=== PATIENT | female | born 1950 | race Caucasian/White ===

== ENCOUNTER 2019-01-22 12:16 | Outpatient (CLI) | payer MEDICARE, BC ==
--- NOTE | 2019-01-22 17:31 | NM ---
NUCLEAR MEDICINE HEPATOBILIARY SCAN: 01/22/19 HISTORY: 68-year-old female with epigastric pain and distended gallbladder. TECHNIQUE: [id number] dose: 5.3 mCi Ensure (fatty meal) dose: 8 oz. [id number] injected IV. Dynamic anterior scintigraphy of abdomen for 1 hour. Fatty meal adminis tered. Additional dynamic anterior scintigraphy of abdomen. Counts obtained over gallbladder. Time-a ctivity curve generated. FINDINGS: There is normal uptake and washout of activity at the liver. Bowel activity is visualized at an appro priate time. There is delayed filling of the gallbladder which appears after the 60 minute image. Gal lbladder ejection fraction evaluation is limited because of activity in bowel overlying the gallbladd er or adjacent to the gallbladder. Gallbladder ejection fraction of 20% is obtained. IMPRESSION: Abnormally delayed filling of the gallbladder, and abnormally low gallbladder ejection fraction of 20 %. DEREK Rizvi POS: [facility]
== END 2019-01-22 12:17 | disposition home or self-care (01) ==
LOC: NM 12:16
PROVIDERS: ATTEND Family Medicine
DX: R10.13 Epigastric pain (principal); R93.3 Abnormal findings on diagnostic imaging of other parts of digestive tract
CPT/HCPCS: 78227; A9537

== ENCOUNTER 2019-03-06 08:55 | Outpatient (CLI) | payer MEDICARE, BC ==
[2019-03-06 11:31] LABS: #Basophils 0.1 thou/uL (0.0-0.2); #Eosinphils 0.3 thou/uL (0.0-0.7); #Lymphocytes 2.5 thou/uL (1.20-3.40); #Monocytes 0.5 thou/uL (0.11-0.59); #Neutrophils 1.9 thou/uL (1.40-6.50); %Eosinophils 4.9 % (0.0-10.0); %Lymphocytes 47.3 % (21.0-51.0); %Monocytes 9.6 % (0.0-10.0); %Neutrophils 37.2 % (42.0-75.0); Hemoglobin 14.4 g/dL (12.0-16.0); Mean Corpuscular HGB CONC 31.4 g/dL (32.0-36.0); Mean Corpuscular Hemoglobin 28.8 pg (27.0-31.0); Mean Corpuscular Volume 91.6 fL (78.0-98.0); Mean Platelet Volume 8.1 fL (7.4-10.4); Platelet Count 263 thou/uL (130-400); RBC Distribution Width 12.1 % (11.5-14.5); Red Blood Cell (RBC) Count 5.01 mill/uL (4.20-5.40); White Blood Cell (WBC) Count 5.2 thou/uL (4.8-10.8)
[2019-03-06 12:00] LABS: ALT (SGPT) 15 U/L (8-55); AST (SGOT) 18 U/L (5-34); Albumin 4.2 g/dL (3.4-4.8); Alkaline Phosphatase 62 U/L (40-150); Anion Gap 12 mmol/L (10-20); BUN (Urea Nitrogen) 14 mg/dL (9.8-20.1); Bilirubin, Direct 0.2 mg/dL (0.1-0.3); Bilirubin, Total 0.5 mg/dL (0.2-1.2); Calc. Creatinine Clearance 0 mL/min (70-130); Calcium 9.6 mg/dL (7.8-10.44); Carbon Dioxide 25 mmol/L (23-31); Chloride 106 mmol/L (98-107); Estimated GFR-MDRD 61; Globulin 3.2 g/dL (2.4-3.5); Glucose 90 mg/dL (80-115); Potassium 4.5 mmol/L (3.5-5.1); Protein, Total 7.4 g/dL (6.0-8.3); Sodium 138 mmol/L (136-145)
--- NOTE | 2019-03-06 17:19 | EKG ---
Test Reason : Blood Pressure : / mmHG Vent. Rate : 056 BPM Atrial Rate : 056 BPM P-R Int : 236 ms QRS Dur : 102 ms QT Int : 436 ms P-R-T Axes : 074 075 036 degrees QTc Int : 420 ms Sinus bradycardia with marked sinus arrhythmia with 1st degree A-V block Otherwise normal ECG When compared with ECG of 15-SEP-2011 11:47, WI interval has increased Confirmed by DR. Shelley SCHWARTZ ([id number]) on 03/06/2019 5:19:20 PM Referred By: LYNDA Confirmed By:DR. Shelley SCHWARTZ
== END 2019-03-06 08:56 | disposition home or self-care (01) ==
LOC: LABBT 08:55
PROVIDERS: ATTEND Surgery
DX: Z01.818 Encounter for other preprocedural examination (principal); K81.1 Chronic cholecystitis
CPT/HCPCS: 80053; 80076; 85025; 93005; 93010

== ENCOUNTER 2019-03-13 07:58 | Inpatient (IN) | payer MEDICARE, BC ==
[2019-03-13] MEDS ORDERED: Sodium Chloride 0.9% 100 ML ONE (08:34)
[2019-03-13] MEDS ORDERED: cefOXitin 2 GM VIAL ONE (08:34)
[2019-03-13] MEDS ORDERED: Bupivacaine/Epinephrine 0.25% 30 ML VIAL ONE (09:02)
[2019-03-13] MEDS ORDERED: Bupivacaine 0.25% HCL 30 ML VIAL ONE (09:02)
[2019-03-13] MEDS ORDERED: Iothalamate Meglumine 60% 50 ML VIAL FS ONE (09:07)
[2019-03-13] MEDS ORDERED: Fentanyl 250 MCG/5 ML VIAL ONE (09:08)
[2019-03-13] MEDS ORDERED: Promethazine HCl 25 MG/ML VIAL IM PRN ×2 (10:41→11:00)
[2019-03-13] MEDS ORDERED: Morphine 4 MG/ML VIAL SLOW IVP PRN (10:41)
[2019-03-13] MEDS ORDERED: Dextrose 5% in Water 1,000 ML IV PRN (10:41)
[2019-03-13] MEDS ORDERED: Mag-Al 1200 mg/1200 mg/30 ML UDCUP PO PRN (10:41)
[2019-03-13] MEDS ORDERED: Dextrose 50% Abboject 50 ML SYRINGE SLOW IVP PRN (10:41)
[2019-03-13] MEDS ORDERED: Ondansetron PF 4 MG/2 ML Vial IVP PRN (10:41)
[2019-03-13] MEDS ORDERED: hydrALAZINE 20 MG/ML VIAL SLOW IVP PRN (10:41)
[2019-03-13] MEDS ORDERED: Calcium Carbonate 500 MG ChewTAB PO PRN (10:41)
[2019-03-13] MEDS ORDERED: Promethazine HCl 25 MG/ML VIAL SLOW IVP PRN (11:00)
[2019-03-13] MEDS ORDERED: Ondansetron HCl/PF 4 MG/2 ML Vial IVP PRN (11:00)
[2019-03-13] MEDS: D5 1/2 NS w/20 mEq KCL 1,000 ML IV SCH ×2 (13:06→21:26)
--- NOTE | 2019-03-13 13:09 | RAD ---
OPERATIVE CHOLANGIOGRAM 3 VIEWS: Date: 03/13/19 HISTORY: Intraoperative film. FINDINGS: Filling is seen of the common bile duct. The very distal duct is never visualized on this exam. I do not see any filling defects in the visualized portion of the duct. IMPRESSION: Nonvisualization of the very distal aspect of the common duct. I cannot exclude a stone in this regio n. POS: [facility]
[2019-03-13 13:30] LABS: ALT (SGPT) 36 U/L (8-55); AST (SGOT) 50 U/L (5-34); Albumin 3.9 g/dL (3.4-4.8); Alkaline Phosphatase 65 U/L (40-150); Bilirubin, Direct 0.2 mg/dL (0.1-0.3); Bilirubin, Total 0.4 mg/dL (0.2-1.2); Protein, Total 7.2 g/dL (6.0-8.3)
[2019-03-13 13:34] VITALS: BMI 31.0
[2019-03-13] MEDS ORDERED: PROPOFOL 200 MG/20 ML VIAL ONE (14:01)
[2019-03-13] MEDS ORDERED: ePHEDrine 50 MG/ML VIAL ONE (14:01)
[2019-03-13] MEDS ORDERED: Ondansetron PF 4 MG/2 ML Vial ONE (14:01)
[2019-03-13] MEDS ORDERED: Rocuronium Bromide 10 MG/ML (10ML VIAL) ONE (14:01)
[2019-03-13] MEDS ORDERED: Dexamethasone 20 MG/5 ML VIAL ONE (14:01)
[2019-03-13] MEDS ORDERED: Glycopyrrolate 0.2 MG/ML 5 ML SYRINGE ONE (14:01)
[2019-03-13] MEDS: cefOXitin 2 GM in Sodium Chloride 0.9% 100 ML IVPB SCH ×2 (15:02→21:29)
--- NOTE | 2019-03-13 17:35 | MRI ---
MRI OF THE ABDOMEN WITHOUT IV CONTRAST: 03/13/19 INDICATION: Question of common bile duct stone. TECHNIQUE: Multiplanar and multisequence MR images were obtained of the abdomen without IV contrast. Comparisons are made with cholangiogram dated 03/13/19, abdominal sonogram dated 01/03/19. FINDINGS: There is postsurgical change of a recent cholecystectomy. There is some mild edema and fluid present within the right upper quadrant of the abdomen most prominently within Payne's pouch and the gallb ladder fossa. The common bile duct is dilated measuring up to 1 cm. There is smooth tapering of the common bile asif t at the level of the ampulla. No visible intraluminal stone is evident. There is moderate intrahepat ic biliary ductal dilatation. No visible pancreatic head mass is evident. The main pancreatic duct is mildly prominent measuring 4 mm. No definite inflammatory change is seen surrounding the pancreas. Incidental note is made of a 1.5 cm left adrenal adenoma. There are mild left and right peripelvic cy sts. The spleen is normal appearing. Right adrenal gland is normal appearing. There is a small hiatal hernia. The bone marrow signal intensity appears within normal limits. IMPRESSION: 1. Nonspecific moderate dilatation of the intrahepatic and extrahepatic biliary ducts as well as the main pancreatic duct with tapering of the ducts down to the level of the ampulla. Ampullary sten osis is suspected and this may be related to patient being on pain medication. GI consultation may b e helpful for consideration for an ERCP as a destructing ampullary lesion cannot be entirely excluded . No definite suspicious mass is evident within this region by MRI. 2. Postoperative change of recent cholecystectomy. 3. Left adrenal adenoma. 4. Small peripelvic renal cysts. POS: [facility]
[2019-03-13] MEDS: Famotidine 20 MG TAB PO SCH (21:26)
[2019-03-13] MEDS: Famotidine/PF 20 mg/2ml Vial SLOW IVP SCH (21:29)
--- NOTE | 2019-03-14 01:23 | CON ---
DATE OF CONSULTATION: REASON FOR CONSULT: Possible abnormal MRCP. HISTORY OF PRESENT ILLNESS: Ms. Sher is a pleasant 68-year-old, who was brought in for outpatient cholecystectomy. She reports intermittently she has had some bouts of right upper quadrant pain. She has seen Dr. Hickman for upper and lower endoscopies, most recently in 2016. In December, she had an abdominal ultrasound with Dr. Cobb, it showed a 5 mm bile duct and concerned for possible hydrops of the gallbladder, but no overt stone seen. She had a HIDA scan then, it showed delayed filling and EF of 20% on 01/22, and ultimately, today she underwent a laparoscopic cholecystectomy. On the intraoperative cholangiogram that was performed, there was nonvisualization of the very distal aspect of the common duct. Dr. Sinha reported that there may have been some small filling defects we could not be sure, but there was drainage from the bile duct. The patient's liver test have typically been normal, although on 03/06, AST and ALT were 18 and 15 with a bilirubin of 0.5. Today, her AST was 50, but all other liver enzymes were normal. Presently, she has no pain. PAST MEDICAL HISTORY: She takes her medications for reflux. She reports history of colon polyps. She had a tonsillectomy in the past and carpal tunnel surgery in the past. She has also had pancreatitis several times back in . The etiology was really unclear. FAMILY HISTORY: Father had renal failure related to diabetes. No family history of pancreatic disease in close relatives. SOCIAL HISTORY: Negative for alcohol, drugs, or tobacco. MEDICATIONS: At home, she only takes omeprazole. Present medications here, 1. MiraLAX. 2. DuoNeb. 3. Tums. 4. Cefoxitin. 5. Lovenox. 6. Pepcid. 7. Morphine. 8. Zofran. 9. Potassium chloride. 10. D5 half-normal with 20 K. PHYSICAL EXAMINATION: GENERAL: The patient is resting comfortably in bed. Her cousin was at the bedside. VITAL SIGNS: Temperature is 97, pulse 58, blood pressure 147/72. LUNGS: Clear. HEART: Regular rate and rhythm without clicks or murmurs. ABDOMEN: Soft and nontender. There is no rebound. There is no guarding. Trocar site is fine. EXTREMITIES: No clubbing, cyanosis, or edema. LABORATORY DATA: Other than those mentioned above, she had a normal CBC on 03/06. ASSESSMENT: Possible abnormalities of intraoperative cholangiogram, remote history of pancreatitis, cholecystectomy today for hydrops of the gallbladder. She had a mildly elevated AST with otherwise normal LFTs today. RECOMMENDATIONS: MRCP that has been performed and results are pending. Depending on that, I would make recommendations whether or not she needs an ERCP. If there are some pretty conclusive findings on the MRCP, to recommend an ERCP in light of her prior history of pancreatitis and normal liver enzymes. Job ID: [id number]
[2019-03-14] MEDS: D5 1/2 NS w/20 mEq KCL 1,000 ML IV SCH ×2 (06:01→11:22)
[2019-03-14] MEDS: cefOXitin 2 GM in Sodium Chloride 0.9% 100 ML IVPB SCH (06:08)
[2019-03-14 07:12] LABS: #Lymphocytes 2.4 thou/uL (1.20-3.40); #Monocytes 0.9 thou/uL (0.11-0.59); #Neutrophils 6.5 thou/uL (1.40-6.50); %Basophils 0.1 % (0.0-1.0); %Eosinophils 0.2 % (0.0-10.0); %Lymphocytes 24.6 % (21.0-51.0); %Monocytes 8.7 % (0.0-10.0); %Neutrophils 66.3 % (42.0-75.0); Hemoglobin 14.7 g/dL (12.0-16.0); Mean Corpuscular HGB CONC 31.5 g/dL (32.0-36.0); Mean Corpuscular Hemoglobin 28.4 pg (27.0-31.0); Mean Corpuscular Volume 90.1 fL (78.0-98.0); Mean Platelet Volume 7.6 fL (7.4-10.4); Platelet Count 284 thou/uL (130-400); RBC Distribution Width 12.2 % (11.5-14.5); Red Blood Cell (RBC) Count 5.17 mill/uL (4.20-5.40); White Blood Cell (WBC) Count 9.8 thou/uL (4.8-10.8)
[2019-03-14 07:37] LABS: ALT (SGPT) 39 U/L (8-55); AST (SGOT) 38 U/L (5-34); Albumin 4.3 g/dL (3.4-4.8); Alkaline Phosphatase 64 U/L (40-150); Anion Gap 11 mmol/L (10-20); BUN (Urea Nitrogen) 9 mg/dL (9.8-20.1); Bilirubin, Direct 0.3 mg/dL (0.1-0.3); Bilirubin, Total 0.8 mg/dL (0.2-1.2); Calc. Creatinine Clearance 77 mL/min (70-130); Calcium 10.1 mg/dL (7.8-10.44); Carbon Dioxide 24 mmol/L (23-31); Chloride 106 mmol/L (98-107); Estimated GFR-MDRD 65; Globulin 3.6 g/dL (2.4-3.5); Glucose 116 mg/dL (80-115); Lipase 9 U/L (8-78); Potassium 4.4 mmol/L (3.5-5.1); Protein, Total 7.9 g/dL (6.0-8.3); Sodium 137 mmol/L (136-145)
[2019-03-14 07:45] VITALS: TEMP 98.5
[2019-03-14] MEDS: Famotidine 20 MG TAB PO SCH (08:36)
[2019-03-14] MEDS: Famotidine/PF 20 mg/2ml Vial SLOW IVP SCH (08:37)
[2019-03-14] MEDS ORDERED: Enoxaparin Sodium 40 MG/0.4 ML SYRINGE SC SCH (09:00)
[2019-03-14 11:24] VITALS: BP 146/75
--- NOTE | 2019-03-14 11:51 | PRG ---
DATE OF SERVICE: SUBJECTIVE: Ms. Sher is feeling well. She is without complaints. PHYSICAL EXAMINATION: GENERAL: She is resting comfortably. She has no distress. VITAL SIGNS: Pulse 55, temperature 98, blood pressure 159/85. ABDOMEN: Soft and nontender. Trocar sites are warm and dry. LABORATORY DATA: White count 9.8, hemoglobin 14, platelet count 284. Basic metabolic profile normal. AST is 38 down from 50, ALT is 39, alkaline phosphatase 64, bilirubin 0.3, albumin is 4.3. MRCP from yesterday shows no evidence of choledocholithiasis. There is some prominence of the common bile duct up to 1 cm to be tapering distally. The pancreatic duct is 4 mm, her radiologist was concerned about. She also had a small adrenal adenoma in the left. Radiologist concerned that she could have some ampullary stenosis. ASSESSMENT: 1. Status post cholecystectomy for hydrops of the gallbladder. 2. No signs of choledocholithiasis. 3. Remote history of recurrent pancreatitis of unclear etiology. Ampullary stenosis may be playing a role. 4. MRI with dilatation of common bile duct. This could be related to the hydrops affecting the gallbladder, ampullary lesion, or more likely just some ampullary stenosis. She is asymptomatic. RECOMMENDATIONS: She is to follow up in the office in a week or so with Dr. Hickman, primary freight car repairer will set that up. We talked to her about the options for ERCP and sphincterotomy. If she has symptoms or just observation, it would be reasonable otherwise right now to either get an EUS or look at the ampulla side-viewing scope to make sure there is no ampullary mass. We will discuss this with Dr. Hickman in more detail next week. I got her phone number. We will get her followup in the office. Job ID: [id number]
--- NOTE | 2019-03-16 12:03 | OP ---
DATE OF PROCEDURE: 03/13/2019 PREOPERATIVE DIAGNOSIS: Biliary colic with history of pancreatitis. PROCEDURE PERFORMED: Laparoscopic cholecystectomy with cholangiogram. INDICATIONS: This is a 68-year-old female, who has had at least 2 episodes of pancreatitis of unknown etiology. She has been having intermittent right upper quadrant pain. Ultrasound showed hydrops of the gallbladder. She had a low ejection fraction on HIDA scan. FINDINGS: Cholangiogram showed very poor flow into the duodenum, questionable common duct stone seen on one of the views on the cholangiogram. DESCRIPTION OF PROCEDURE: After informed consent was obtained, the patient was taken to the operating room, given general endotracheal anesthesia, placed in supine position. Abdomen was prepped and draped in usual fashion. Local anesthesia infiltrated subcutaneously and deep subumbilical incision was performed. Subcu divided sharply. The fascia grasped and 2 stay sutures of 0 Vicryl placed in each side of midline. Midline incised. Digital palpation revealed no local adhesions. A blunt 12 mm trocar inserted. Pneumoperitoneum was created to a pressure of 15 mmHg. A 0-degree laparoscope inserted under direct vision. Three 5 mm ports were placed subcostally. The gallbladder grasped and advanced superiorly. The peritoneum was dissected distally to expose the cystic duct and artery in critical view. She had a very short cystic artery coming right off the right hepatic, but was able to get clips on it. A clip was placed at the base of the gallbladder on the cystic duct. A cholangiocatheter inserted. Intraoperative cholangiogram performed, this showed it really did get much flow into the duodenum and then they came back out, I wound up, put it back in, gave a milligram of glucagon and waited for about 5 minutes and then repeated the cholangiogram. This time, there was a faint wisp of dye in the duodenum, and I thought that there was a hint of a possible filling defect in the common duct. The duct was triply ligated with hemoclips and divided and the artery divided. The gallbladder removed from its fossa utilizing electrocautery, removed from the abdomen through the umbilical port. Hemostasis assured. Trocars and retractors removed. The fascia closed with interrupted 0 Vicryl suture. The skin closed with interrupted 4-0 Rapide and Dermabond. I think that because of the possibility of common duct stone, the plan, I did discuss this with GI, is to repeat her LFTs and to get an MRCP. Job ID: [id number]
== END 2019-03-14 12:45 | disposition home or self-care (01) | DRG 419 ==
LOC: SDC 07:58 → SURG A 11:33
PROVIDERS: ADMIT Surgery; ATTEND Surgery
PROC: 0FT44ZZ Resection of Gallbladder, Percutaneous Endoscopic Approach (ICD-10-PCS; principal; 2019-03-13)
PROC: BF10YZZ Fluoroscopy of Bile Ducts using Other Contrast (ICD-10-PCS; 2019-03-13)
DX: K82.1 Hydrops of gallbladder (principal); K81.1 Chronic cholecystitis; K21.9 Gastro-esophageal reflux disease without esophagitis; K83.8 Other specified diseases of biliary tract; Z87.19 Personal history of other diseases of the digestive system
CPT/HCPCS: 36415; 47532; 74181; 80053; 80076; 83690; 85025; 88304; J0694; J1610; J2270; J3010; J3490; S0020